=== PATIENT | male | born 1975 | race Caucasian/White ===

== ENCOUNTER 2016-11-22 20:05 | Emergency (ER) | payer MEDICARE, OTHER ==
[~2016-11-22] VITALS: Ht 152.4 cm; Wt 62.6 kg
[2016-11-22 20:12] VITALS: BP 121/68
--- NOTE | 2016-11-22 22:50 | NUR ---
PT. AMBULATED TO ER BED 1
--- NOTE | 2016-11-22 22:59 | NUR ---
41/M BIB FAMILY C/O CHEST PAIN YESTERDAY AT WORK AT 1800 HOUR TILL NOW. 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 PATIENT STATES PAIN DOES NOT RADIATE. PAIN 10/ TIGHNESS. RELIEVED BY REST. AAOx4, BREATHING EVEN AND UNLABORED. ERMD NOTIFIED OF PATIENT STATUS.
--- NOTE | 2016-11-22 23:01 | NUR ---
Patient being evaluated by physician at bedside.
--- NOTE | 2016-11-22 23:51 | NUR ---
Patient appears to be resting comfortably in bed. Vital Signs within normal limits. Respirations even and unlabored.
--- NOTE | 2016-11-23 00:50 | NUR ---
PT RESTING. VSS; PATIENT POSITIONED FOR COMFORT; HOB ELEVATED; BEDRAILS UP X2; BED DOWN. ER MD MADE AWARE OF PT STATUS.
[2016-11-23] MEDS ORDERED: NACL 0.9% 500 ML IV ONE (01:00)
--- NOTE | 2016-11-23 01:46 | NUR ---
Patient discharged with v/s stable. Written and verbal after care instructions given and explained. Patient alert, oriented and verbalized understanding of instructions. Ambulatory with steady gait. All questions addressed prior to discharge. ID band removed. Patient advised to follow up with PMD. Rx of IBUPROFEN 600MG TABLET given. Patient educated on indication of medication including possible reaction and side effects. Opportunity to ask questions provided and answered.
[2016-11-23 01:47] VITALS: BP 108/72
== END 2016-11-23 01:47 | disposition home or self-care (01) ==
LOC: MED 20:05
DX: E86.0 Dehydration (principal)
CPT/HCPCS: 36415; 71010; 80053; 81002; 83880; 84484; 85025; 85379; 85610; 85730; 93005; 99285; J7030; Q0092